=== PATIENT | female | born 1995 ===

== ENCOUNTER 2021-02-08 19:19 | Emergency (ER) | payer MEDICAID ==
[~2021-02-08] VITALS: Ht 154.9 cm; Wt 105.0 kg
[2021-02-08 19:38] VITALS: BP 155/73
[2021-02-08] MEDS ORDERED: DIPH25CA83 MT (20:59)
[2021-02-08] MEDS ORDERED: P20 MT (20:59)
[2021-02-08] MEDS ORDERED: SULF1TAB48 MT (20:59)
[2021-02-08] MEDS ORDERED: CEPH500C2 MT (20:59)
[2021-02-08] MEDS ORDERED: DIPHENHYDRAMINE 25MG CAPSULE PO ONE (21:00)
[2021-02-08] MEDS ORDERED: PREDNISONE 20MG TABLET PO ONE (21:00)
== END 2021-02-08 22:14 | disposition home or self-care (01) ==
LOC: ER 19:19
DX: T78.49XA Other allergy, initial encounter (principal); X58.XXXA Exposure to other specified factors, initial encounter; L03.313 Cellulitis of chest wall
CPT/HCPCS: 81025; 99283; J7512; Q0163